=== PATIENT | female | born 1965 | race Hispanic/Latino ===

== ENCOUNTER 2021-02-22 15:11 | Emergency (ER) | payer OTHER ==
[~2021-02-22] VITALS: Ht 160 cm; Wt 99.8 kg
[2021-02-22 15:13] VITALS: BP 152/88
[2021-02-22 15:14] VITALS: BP 152/88
[2021-02-22] MEDS ORDERED: ACET1TAB25 PO (16:21)
[2021-02-22] MEDS ORDERED: ACETAMINOPHEN WITH CODEINE 1 TAB TAB ONE (16:26)
[2021-02-22] MEDS ORDERED: ACETAMINOPHEN WITH CODEINE 1 TAB TAB PO ONE (16:30)
== END 2021-02-22 16:56 | disposition home or self-care (01) ==
LOC: EDH 15:11
DX: R07.89 Other chest pain (principal); M25.562 Pain in left knee; V43.52XA Car driver injured in collision with other type car in traffic accident, initial encounter; Y93.89 Activity, other specified; Y92.89 Other specified places as the place of occurrence of the external cause; Y99.8 Other external cause status
CPT/HCPCS: 71045